=== PATIENT | female | born 1955 | race Caucasian/White ===

== ENCOUNTER 2018-07-11 10:53 | Inpatient (IN) | payer MEDICARE ==
[~2018-07-11] VITALS: Ht 157.5 cm; Wt 124.7 kg
[~2018-07-11 10:53] MED LIST: ALDACTONE25 MG PO; ASPIRIN EC81 MG PO; BIOTIN5 MG PO; BRILINTA90 MG PO; BUMEX2 MG PO; CARDIZEM30 MG PO; COLACE100 MG PO; COLCRYS0.6 MG PO; COREG12.5 MG PO; COREG25 MG PO; DILAUDID2 MG PO; DIOVAN80 MG PO; ELIQUIS5 MG PO; FISH OIL 1,0001 CA1 PO; HYDROCHLOROTHIA25 MG PO; ISOSORBIDE MONO30 M1 PO; KLOR-CON20 MEQ/PKT PO; LANTUS INSULIN10 ML SC; LASIX40 MG PO; LASIX80 MG PO; LIPITOR40 MG PO; MEDROL2 MG PO; NITRO-DUR0.4 MG SL; NOVOLOG MI100 UNIT/1; NYSTATIN15 GM TP; PHENERGAN25 M1 PO; PRAVACHOL40 MG PO; PREVACID30 MG PO; RENA-VITE TABL0.8 MG PO; SOMA350 MG PO; TYLENOL W/CODEI1 TAB PO; XANAX0.5 MG PO; ZYLOPRIM100 MG PO
[2018-07-11 11:20] LABS: HEMATOCRIT 34.9 % (36.0-48.0); HEMOGLOBIN 11.2 g/dL (12-16); MCH 28.4 pg (26.0-34.0); MCHC 32.1 g/dL (31.0-37.0); MCV 88.4 fL (80.0-100.0); MEAN PLATELET VOLUME 8.8 fL (7.4-10.4); RBC 3.95 10x6/uL (4.00-5.40); RDW 15.3 % (11.5-14.5); WBC 9.8 10x3/uL (4.8-10.8)
[2018-07-11 11:26] LABS: APTT 26.6 SECONDS (22.8-39.4); INR 1.05 (0.85-1.17); PROTIME 13.2 SECONDS (11.6-15.0)
[2018-07-11 11:30] LABS: ANION GAP 16.4 mmol/L (8-16); CALCIUM 9.2 mg/dL (8.5-10.1); CARBON DIOXIDE 24.8 mmol/L (21.0-32.0); CREATININE - SERUM 4.8 mg/dL (0.6-1.3); POTASSIUM - SERUM 4.2 mmol/L (3.5-5.1)
[2018-07-11] MEDS ORDERED: OMEPRAZOLE20 M1 PO (12:20)
[2018-07-11] MEDS ORDERED: BAYER CHEWABLE81 MG PO (12:20)
[2018-07-11] MEDS ORDERED: SENSIPAR30 MG PO (12:21)
[2018-07-11] MEDS ORDERED: GABAPENTIN100 MG PO (12:21)
[2018-07-11] MEDS ORDERED: CLOTRIMAZOLE-BE30 ML TOPICAL (12:23)
[2018-07-11] MEDS ORDERED: TOPROL XL25 MG PO (12:24)
[2018-07-11 13:14] VITALS: BP 127/67; BMI 50.6
--- NOTE | 2018-07-11 13:37 | NUR ---
8385-PHONED PRE-OP GLUCOSE OF [address] [id number]-HFPEC FINGER STICK BLOOD SUGAR IS 174.
--- NOTE | 2018-07-11 19:22 | NUR ---
50CC OF SEROSANGENOUS FLUID REMOVED FROM STACY DRAIN @1905
[2018-07-11 19:48] VITALS: BP 108/46
--- NOTE | 2018-07-11 19:50 | NUR ---
PT ARRIVED TO ROOM 2108 FROM RECOVERY. PT IS AAO. VITALS DOCUMENTED UNDER VITAL SIGNS. PT HAS A STACY DRAIN. HEMESPLIT IS ACCESSED THROUGH BLUE PORT FROM SURG. WILL ATTEMPT AND IV ACCESS AND CLOSE HEMESPLIT PER PROTCOL WITH HEPARIN. PT FAMILY IN ROOM. CALL LIGHT IN REACH. WILL CPOC
--- NOTE | 2018-07-11 20:52 | NUR ---
SINCE 1949 NURSE HAS ATTEMPTED TO CALL SURG FOR A PRN PAIN MEDICATION FOR WHEN THE BLOCK WEARS OFF. NO ANSWER. WILL NEED TO CALL RENAL. CHANGED DRSG OF RIGHT CHEST HEMESPLIT, IT IS NOW CDI. FLUSHED RIGHT CHEST HEMESPLIT AND PLACED 1.7ML OF HEPARIN, CLOSED HEMESPLIT WITH A STERILE CAP. STARTED A 22G PIV IN LEFT HAND. ONE ATTEMPT. BP WNL, PT DENIES ANY PAIN AT THIS TIME. RIGHT AVF WNL BRUIT AND THRILL NOTED. SLING IN PLACE. PT CALL LIGHT IN REACH . BEDLOW AND CALL LIGHT IN REACH. WILL CPOC
[2018-07-11 21:05] VITALS: BP 108/46; BMI 50.6
[2018-07-12 04:00] VITALS: BP 120/47
[2018-07-12 06:00] LABS: BASOPHILS 0.4 % (0-2); EOSINOPHILS 2.4 % (0-7); HEMATOCRIT 34.1 % (36.0-48.0); HEMOGLOBIN 10.9 g/dL (12-16); IMMATURE GRANULOCYTES 0.5 % (0-5); LYMPHOCYTES 8.6 % (15-50); MCH 28.4 pg (26.0-34.0); MCV 88.8 fL (80.0-100.0); MEAN PLATELET VOLUME 9.3 fL (7.4-10.4); MONOCYTES 8.5 % (2-11); NEUTROPHILS 79.6 % (40-80); PLATELET COUNT 233 10x3/uL (130-400); RBC 3.84 10x6/uL (4.00-5.40); RDW 15.6 % (11.5-14.5); WBC 10.8 10x3/uL (4.8-10.8)
[2018-07-12 06:25] LABS: ALBUMIN 3.1 g/dL (3.4-5.0); ANION GAP 16.8 mmol/L (8-16); BILIRUBIN - TOTAL 0.27 mg/dL (0.2-1.3); CALCIUM 8.7 mg/dL (8.5-10.1); CREATININE - SERUM 5.5 mg/dL (0.6-1.3); MAGNESIUM - SERUM 2.1 mg/dL (1.8-2.4); PHOSPHOROUS 7.6 mg/dL (2.5-4.9); POTASSIUM - SERUM 4.8 mmol/L (3.5-5.1); PROTEIN - SERUM 6.3 g/dL (6.4-8.2)
--- NOTE | 2018-07-12 06:36 | NUR ---
PT IN BED IN LOW FOWLERS POSITION. ALERT AND ORIENTED X4. RESPIRATIONS EVEN AND UNLABORED. VITAL SIGNS STABLE AND AFEBRILE. NO VISUAL CUES OF DISTRESS NOTED. DENIES ANY OTHER NEEDS AT THIS TIME. BED LOW, SIDE RAILS UP X2. CALL LIGHT IN REACH. WILL CONTINUE TO MONITOR.
[2018-07-12 06:43] LABS: TROPONIN-I 0.341 ng/mL (0.000-0.060)
--- NOTE | 2018-07-12 07:30 | NUR ---
AAOX4 RESP UNLABORED RT ARM IN SLING ASSISTED PT BACK TO BED TOLERATED WELL DENIES ANY NEEDS OR DISCOMFORT AT THIS TIME
[2018-07-12 09:23] VITALS: BP 125/54
[2018-07-12 09:58] VITALS: Ht 157.5 cm; Wt 124.7 kg
--- NOTE | 2018-07-12 11:54 | NUR ---
NOTIFIED [facility]ASH IN DIALYSIS THAT I NOTICED THERE WAS HEPARIN ORDERED IN THE DIALYSIS ORDERS, BUT NEPHROLOGY NOTE SAID TO HOLD THE HEPARIN WITH DIALYSIS WELL HER ASA SECONDARY TO VAGINAL BLEEDING.
--- NOTE | 2018-07-12 16:38 | MORECARE ---
CASE MANAGEMENT DISCHARGE SUMMARY PATIENT: KEVIN CRAIN LE[place] UNIT: [id number] ADM DATE: 07/11/18 AGE: 63 : 53 SEX: F ROOM/BED: D.5757 AUTHOR: SEBASTIAN,DOC PHYSICIAN: REFERRING PHYSICIAN: SANDRA ROWAN MD DATE OF SERVICE: 07/12/18 Discharge Plan Patient Name: KEVIN CRAIN Facility: [facility]:[place] : 1955 Planned Disposition: Home with Home Health Anticipated Discharge Date: 07/13/18 Discharge Date: Expected LOS: 2 Initial Reviewer: [id number] Initial Review Date: 07/12/2018 Generated: 07/12/18 5:37 pm Comments DCP- Discharge Planning Updated by [email or web address]: Donny Obregon on 07/12/18 3:[address] Patient Name: KEVIN CRAIN Admission Status: Elective Accout number: [id number] Admission Date: 07-11-2018 : 1955 Admission Diagnosis: Attending: SANDRA ROWAN Current LOS: 1 Anticipated DC Date: 07-13-2018 Planned Disposition: Home with Home Health Primary Insurance: MEDICARE A & B PLANNED EXTERNAL PROVIDER: [facility] Discharge Planning Comments: CM RECEIVED MESSAGE FROM BEDSIDE NURSE THAT [facility] WILL RESUME PT'S HOME HEALTH AT DISCHARGE. CM MET WITH PT IN ROOM TO DISCUSS DISCHARGE PLANNING AND NEEDS. PT REPORTS LIVING AT HOME INDEPENDENTLY AND ALONE. PT'S SISTER LIVES CLOSE BY AND DOES BRING SOME MEALS OVER TO PT'S HOME AND ALSO TAKES GARBAGE TO [employer] ONCE PER WEEK. PT'S SISTER WILL BE PROVIDING TRANSPORTATION UNTIL PT IS CLEARED TO DRIVE AGAIN. PT HAS WALKER WITH SEAT AND BRAKES, LIMPHODEMA BOOTS FOR LEGS AND GLUCTOMETER, PRERFERRED MEDICAL EQUIPMENT PROVIDER IS [employer]. PT HAS HOME HEALTH FOR WOUND CARE WITH [facility]. CM DISCUSSED AVAILABILITY OF HOME HEALTH, REHAB SERVICES AND MEDICAL EQUIPMENT. PT DENIES DISCHARGE NEEDS OTHER THAN RESUMPTION OF HOME HEALTH. CHOICE SIGNED FOR [facility]. PT REPORTS HER SISTER WILL PICK HER UP FOR DISCHARGE HOME. CM FAXED HOSPITAL UPDATE TO [facility], . FOR DISCHARGE, NOTIFY [facility], , FAX DISCHARGE INFORMATION TO [facility], . Interventional Nurse: Donny Obregon DCPIA - Discharge Planning Initial Assessment Updated by [id number]: Donny Obregon on 07/12/18 4:32 pm * Is the patient Alert and Oriented? Yes * How many steps to enter\exit or inside your home? * PCP DR. DARIO MILES * Pharmacy [facility] [address] OR [facility] * Preadmission Environment Home Alone * ADLs Independent * Equipment Glucometer Other Rolling Walker * Other Equipment WALKER WITH SEAT AND BRAKES [facility] - PREFERRED PROVIDER * List name and contact numbers for known caregivers / representatives who currently or will assist patient after discharge: ANDREIA MATSON, SISTER, * Verbal permission to speak to the caregivers and representatives has been obtained from the patient. N/A * Community resources currently utilized Home Health Other * Please name any agencies selected above. [facility] - NURSING / WOUND CARE OUTPATIENT DIALYSIS, [facility] [place] [facility], MWF, 1015 AM, DRIVES SELF OUTPATIENT WOUND CARE 1X WEEK - DR. JAMISON * Additional services required to return to the preadmission environment? No * Can the patient safely return to the preadmission environment? Yes * Has this patient been hospitalized within the prior 30 days at any hospital? No External [facility]iders [facility] Next Contact Date: 07/13/2018 Service Request Date: Service Type: Resolution: Reviewer: Comments: Coverage Notice Reviewer: [id number] - Donny Obregon Notice Issued Date-Time: 07/12/2018 15:05 Notice Type: Patient Choice Letter Notice Delivered To: Patient Relationship to Patient: Body Masker Name: Delivery Method: HAND - Hand Delivered Rossi Days: Prior Verbal Notification: Recipient Understood Notice: Yes Recipient Signature: Yes Med Rec Note Co-signed by Attending: Coverage Notice Comment: [facility] Patient Name: KEVIN CRAIN Page [phone] at 1638 All edits/amendments must be made on the electronic document DICTATION DATE: 07/12/18 1637 CUSTOMER OPERATIONS REPRESENTATIVE: GIN 07/12/18 1637 RPT#: [id number] DC DATE: STATUS: ADM IN [facility] [address] [place] [address] END OF REPORT
[2018-07-12 18:00] VITALS: BP 122/59
--- NOTE | 2018-07-12 18:56 | NUR ---
DISCONTINUED STACY DRAIN USING STERILE TECHNIQUE PT TOLERATED WELL
--- NOTE | 2018-07-12 19:53 | NUR ---
CALLED DR CARVAJAL AND OBTAINED AN ORDER TO CALL INTO [facility] FOR PT TO CHLORINE CELL TENDER TOMORROW. PHENERGAN 25MG TAB 1 Q4H TEN TAB TOTAL. CALLED INTO [facility] SPOKE WITH NIDHI. PT SIGNED DISCHARGE PAPERS. GIVEN A HAND CARRY HYDROCODONE SCRIPT. PT DENIES ANY QUESTIONS OR CONCERNS. REMOVED LEFT HAND IV AND RETURNED TELEMETRY TO ORDERLIES TEACHER. WAITING FOR ANDREIA PT SISTER.
--- NOTE | 2018-07-12 19:56 | NUR ---
PT SIGNED PAPERS FOR DISCHARGE AND DENIES ANY CONCERNS. LEFT HAND IV NOT REMOVED AT THIS TIME BECAUSE PT SISTER WILL BE PICKING UP IN THE MORNING. PT HAS HYDROCODONE SCRIPT. NURSE DID RETURN MONITOR TO DEMOLITION WORKER. PT DENIES ANY OTHER NEEDS. WILL CPOC
[2018-07-12 20:00] VITALS: BP 126/64
--- NOTE | 2018-07-12 20:00 | NUR ---
PATIENT STATES SHE DOES NOT WANT TO BE DISCHARGED UNTIL THE AM. PATIENT STATES HER FAMILY MEMBER THAT IS COMING TO GET HER CAN NOT DRIVE AT NIGHT AND REFUSED A TAXI VOUCHER. CALLED DR. HUGHES'S [employer] DRIVER NUMBER AND ASKED FOR DR. HUGHES TO BE PAGED. CHARGE NURSE AWARE. HOUSING [employer]RE[employer] DELIVERY DRIVER AWARE.
--- NOTE | 2018-07-12 21:30 | NUR ---
PATIENT REPORTED WHEN GIVING MEDICATIONS THAT SHE PULLED OFF HER DRESSING TO HER RIGHT UPPER ARM DUE TO IT "ITCHING AND BURNING." AREA HAD NO DRAINAGE. NEW DRESSING APPLIED. PATIENT EDUCATED TO LEAVE DRESSING ON UNTIL HER DOCTOR TELLS HER OTHERWISE. PATIENT VERBALIZED UNDERSTANDING OF TEACHING.
[2018-07-13] VITALS: BP 128/60
--- NOTE | 2018-07-13 00:30 | NUR ---
PATIENT LAYING IN BED. EYES CLOSED, CHEST RISING AND FALLING. NO DISTRESS NOTED.
[2018-07-13 04:00] VITALS: BP 132/60
--- NOTE | 2018-07-13 04:12 | NUR ---
I have reviewed this patient and I concur with the Shift Assessment completed by the Licensed Practical Nurse today this shift.
--- NOTE | 2018-07-13 07:40 | NUR ---
PT UP IN RECLINER BY BED, STATES HER SISTER SHOULD BE THERE TO PICK HER UP ABOUT 0800. I/V STILL IN, WILL REMOVE SHORTLY. NO COMPALINTS/CONCERNS VOICED AT THIS TIME. CL IN REACH. NO DISTRESS NOTED OR STATED
--- NOTE | 2018-07-13 08:17 | NUR ---
PT ESCORTED VIA OUT WHEELCHAIR TO SISTERS POV[facility] NO COMPLAINT/SCONCERNS/DISTRESS VOICED OR NOTED AT THIS TIME.
--- NOTE | 2018-07-13 08:33 | MORECARE ---
CASE MANAGEMENT DISCHARGE SUMMARY PATIENT: KEVIN CRAIN LEONA UNIT: [id number] ADM DATE: 07/11/18 AGE: 63 : 53 SEX: F ROOM/BED: D.2106 AUTHOR: SEBASTIAN,DOC PHYSICIAN: REFERRING PHYSICIAN: SANDRA ROWAN MD DATE OF SERVICE: 07/13/18 Discharge Plan Patient Name: KEVIN CRAIN Facility: [facility]:[place] : 1955 Planned Disposition: Home with Home Health Anticipated Discharge Date: 07/14/18 Discharge Date: 07/13/2018 Expected LOS: 3 Initial Reviewer: [id number] Initial Review Date: 07/12/2018 Generated: 07/13/18 9:33 am Comments DCP- Discharge Planning Updated by [id number]: Donny Obregon on 07/13/18 7:[address] Patient Name: KEVIN CRAIN Encounter No: [id number] : 1955 Primary Insurance: MEDICARE A & B Anticipated DC Date: 07-14-2018 Planned Disposition: Home with Home Health External Planned Provider: [facility] DCP follow-up note: CM REVIEWED CHART, PT WAS DISCHARGED HOME LAST EVENING, REFUSED TO LEAVE UNTIL THIS MORNING. CM NOTIFIED [facility] OF [facility], , FAXED DISCHARGE INFORMATION TO [facility], . Set Up Mechanic: Donny Obregon DCP- Discharge Planning Updated by [id number]: Donny Obregon on 07/12/18 3:[address] Patient Name: KEVIN CRAIN Admission Status: Elective Accout number: [id number] Admission Date: 07-11-2018 : 1955 Admission Diagnosis: Attending: SANDRA ROWAN Current LOS: 1 Anticipated DC Date: 07-13-2018 Planned Disposition: Home with Home Health Primary Insurance: MEDICARE A & B PLANNED EXTERNAL PROVIDER: [facility] Discharge Planning Comments: CM RECEIVED MESSAGE FROM BEDSIDE NURSE THAT [facility] WILL RESUME PT'S HOME HEALTH AT DISCHARGE. CM MET WITH PT IN ROOM TO DISCUSS DISCHARGE PLANNING AND NEEDS. PT REPORTS LIVING AT HOME INDEPENDENTLY AND ALONE. PT'S SISTER LIVES CLOSE BY AND DOES BRING SOME MEALS OVER TO PT'S HOME AND ALSO TAKES GARBAGE TO [employer] ONCE PER WEEK. PT'S SISTER WILL BE PROVIDING TRANSPORTATION UNTIL PT IS CLEARED TO DRIVE AGAIN. PT HAS WALKER WITH SEAT AND BRAKES, LIMPHO[employer] BOOTS FOR LEGS AND GLUCTOMETER, PRERFERRED MEDICAL EQUIPMENT PROVIDER IS [employer]. PT HAS HOME HEALTH FOR WOUND CARE WITH [facility]. CM DISCUSSED AVAILABILITY OF HOME HEALTH, REHAB SERVICES AND MEDICAL EQUIPMENT. PT DENIES DISCHARGE NEEDS OTHER THAN RESUMPTION OF HOME HEALTH. CHOICE SIGNED FOR [facility]. PT REPORTS HER SISTER WILL PICK HER UP FOR DISCHARGE HOME. CM FAXED HOSPITAL UPDATE TO [facility], . FOR DISCHARGE, NOTIFY [facility], , FAX DISCHARGE INFORMATION TO [facility], . Set Up Mechanic: Donny Obregon DCPIA - Discharge Planning Initial Assessment Updated by [id number]: Donny Obregon on 07/12/18 4:32 pm * Is the patient Alert and Oriented? Yes * How many steps to enter\exit or inside your home? * PCP DR. DARIO MILES * Pharmacy [facility] [address] [facility] OR [employer] [facility] * Preadmission Environment Home Alone * ADLs Independent * Equipment Glucometer Other Rolling Walker * Other Equipment WALKER WITH SEAT AND BRAKES [facility] - PREFERRED PROVIDER * List name and contact numbers for known caregivers / representatives who currently or will assist patient after discharge: ANDREIA MATSON, SISTER, * Verbal permission to speak to the caregivers and representatives has been obtained from the patient. N/A * Community resources currently utilized Home Health Other * Please name any agencies selected above. [facility] - NURSING / WOUND CARE OUTPATIENT DIALYSIS, [facility], MWF, 1015 AM, DRIVES SELF OUTPATIENT WOUND CARE 1X WEEK - DR. JAMISON * Additional services required to return to the preadmission environment? No * Can the patient safely return to the preadmission environment? Yes * Has this patient been hospitalized within the prior 30 days at any hospital? No Coverage Notice Reviewer: [id number] - Donny Obregon Notice Issued Date-Time: 07/12/2018 15:05 Notice Type: Patient Choice Letter Notice Delivered To: Patient Relationship to Patient: V Belt Curer Name: Delivery Method: HAND - Hand Delivered Rossi Days: Prior Verbal Notification: Recipient Understood Notice: Yes Recipient Signature: Yes Med Rec Note Co-signed by Attending: Coverage Notice Comment: [facility] Last DP export: 07/12/18 3:37 pm Patient Name: KEVIN CRAIN Page [phone] at 0833 All edits/amendments must be made on the electronic document DICTATION DATE: 07/13/1833 CAUSTIC CRESYLATE SHIFT SUPERINTENDENT: GIN 07/13/18 0833 RPT#: [id number] DC DATE:07/13/18 STATUS: DIS IN [facility] [address] [place] [address] END OF REPORT
== END 2018-07-13 08:18 | disposition home health service (06) | DRG 674 ==
LOC: D.OPS 10:53 → D.M2 18:42 → D.OPS 18:43 → D.M2 18:44
PROVIDERS: Anesthesiology; ADMIT Surgery; ATTEND Surgery
PROC: 03170JD Bypass Right Brachial Artery to Upper Arm Vein with Synthetic Substitute, Open Approach (ICD-10-PCS; principal; 2018-07-11 14:15)
PROC: 5A1D70Z Performance of Urinary Filtration, Intermittent, Less than 6 Hours Per Day (ICD-10-PCS; 2018-07-12)
DX: E11.22 Type 2 diabetes mellitus with diabetic chronic kidney disease (principal); I12.0 Hypertensive chronic kidney disease with stage 5 chronic kidney disease or end stage renal disease; N18.6 End stage renal disease; F41.9 Anxiety disorder, unspecified; N93.9 Abnormal uterine and vaginal bleeding, unspecified

== ENCOUNTER 2018-07-16 17:26 | Emergency (ER) | payer MEDICARE ==
[~2018-07-16 17:26] MED LIST changes: +BAYER CHEWABLE81 MG PO; +CLOTRIMAZOLE-BE30 ML TOPICAL; +GABAPENTIN100 MG PO; +OMEPRAZOLE20 M1 PO; +SENSIPAR30 MG PO; +TOPROL XL25 MG PO
[2018-07-16 17:35] VITALS: BMI 31.1
[2018-07-16 19:16] LABS: BASOPHILS 0.1 % (0-2); EOSINOPHILS 1.6 % (0-7); HEMATOCRIT 30.2 % (36.0-48.0); HEMOGLOBIN 9.8 g/dL (12-16); IMMATURE GRANULOCYTES 0.3 % (0-5); LYMPHOCYTES 6.7 % (15-50); MCH 28.4 pg (26.0-34.0); MCHC 32.5 g/dL (31.0-37.0); MCV 87.5 fL (80.0-100.0); MONOCYTES 6.1 % (2-11); NEUTROPHILS 85.2 % (40-80); PLATELET COUNT 196 10x3/uL (130-400); RBC 3.45 10x6/uL (4.00-5.40); RDW 15.4 % (11.5-14.5); WBC 12.6 10x3/uL (4.8-10.8)
[2018-07-16 19:26] LABS: ALBUMIN 2.6 g/dL (3.4-5.0); ANION GAP 13.1 mmol/L (8-16); BILIRUBIN - TOTAL 0.29 mg/dL (0.2-1.3); CALCIUM 9.1 mg/dL (8.5-10.1); CARBON DIOXIDE 24.8 mmol/L (21.0-32.0); CREATININE - SERUM 5.5 mg/dL (0.6-1.3); POTASSIUM - SERUM 3.9 mmol/L (3.5-5.1); PROTEIN - SERUM 6.7 g/dL (6.4-8.2)
[2018-07-16] MEDS ORDERED: AUGMENTIN 875-11 TAB PO (21:18)
[2018-07-16] MEDS ORDERED: DIFLUCAN100 MG PO (21:18)
[2018-07-16 22:05] VITALS: BP 130/57
== END 2018-07-16 22:06 | disposition home or self-care (01) ==
LOC: D.ER 17:26
PROVIDERS: Emergency Medicine
DX: T81.40XA Infection following a procedure, unspecified, initial encounter (principal); D64.9 Anemia, unspecified; I25.10 Atherosclerotic heart disease of native coronary artery without angina pectoris; E11.9 Type 2 diabetes mellitus without complications; I12.9 Hypertensive chronic kidney disease with stage 1 through stage 4 chronic kidney disease, or unspecified chronic kidney disease; N18.6 End stage renal disease; Z99.2 Dependence on renal dialysis